=== PATIENT | female | born 1940 | race Caucasian/White ===

== ENCOUNTER → 2021-12-30 | Outpatient (CLI) | payer MEDICARE ==
[~2021-12-30] MED LIST: ALBUTEROL NEB NEB; BUSPIRONE HCL5 MG PO; CALCIUM + D PO; CYMBALTA60 MG PO; DETROL PO; MONTELUKAST SOD10 MG PO; PROVENTIL HFA6.7 GM INH
== END ==
LOC: SLEEP 19:31
PROVIDERS: ATTEND Internal Medicine Critical Care Medicine
DX: G47.33 Obstructive sleep apnea (adult) (pediatric) (principal)